=== PATIENT | male | born 1990 | race Caucasian/White ===

== ENCOUNTER 2017-11-10 14:23 | Emergency (ER) | payer OTHER, MEDICAID ==
[2017-11-10 18:30] LABS: ADD MAN DIFF? NO
[2017-11-10 18:32] LABS: WHITE BLOOD COUNT 10.2 10^3/ul (4.8-10.8)
[2017-11-10 18:32] LABS: BASOPHIL # 0.1 10^3/ul (0.0-0.1); BASOPHILS % 0.9 % (0.0-2.0); EOSINOPHILS % 0.4 % (0.0-7.0); HEMOGLOBIN 14.6 g/dl (14.0-18.0); LYMPHOCYTES # 2.8 10^3/ul (0.8-2.9); LYMPHOCYTES % 27.5 % (15.0-51.0); MEAN CORPUSCULAR HEMOGLOBIN 27.9 pg (29.0-33.0); MEAN CORPUSCULAR HGB CONC 34.8 g/dl (32.0-37.0); MEAN CORPUSCULAR VOLUME 80.3 fl (82.0-101.0); MEAN PLATELET VOLUME 9.5 fl (7.4-10.4); MONOCYTE # 0.5 10^3/ul (0.3-0.9); MONOCYTES % 5.2 % (0.0-11.0); NEUTROPHIL # 6.7 10^3/ul (1.6-7.5); NEUTROPHILS % 65.7 % (39.0-77.0); PLATELET COUNT 317 10^3/UL (140-415); RED BLOOD COUNT 5.23 10^6/ul (4.70-6.10); RED CELL DISTRIBUTION WIDTH 12.1 % (11.5-14.5)
[2017-11-10 18:48] LABS: ADD UMIC YES; UR ASCORBIC ACID NEGATIVE (NEGATIVE); UR BILIRUBIN (Dip) NEGATIVE (NEGATIVE); UR BLOOD (Dip) NEGATIVE (NEGATIVE); UR CLARITY CLEAR (CLEAR); UR COLOR AMBER (YELLOW); UR GLUCOSE (Dip) NEGATIVE (NEGATIVE); UR KETONES (Dip) NEGATIVE (NEGATIVE); UR LEUKOCYTE ESTERASE (Dip) NEGATIVE Leu/ul (NEGATIVE); UR MUCUS MODERATE /HPF (NONE SEEN); UR NITRITE (Dip) NEGATIVE (NEGATIVE); UR RBC 1 /HPF (0-5); UR SPECIFIC GRAVITY (Dip) 1.031 (1.003-1.030); UR TOTAL PROTEIN (Dip) 1+ mg/dl (NEGATIVE); UR UROBILINOGEN (Dip) 2+ mg/dL (NEGATIVE); UR WBC 2 /HPF (0-5)
[2017-11-10 18:52] LABS: ALANINE AMINOTRANSFERASE 36 IU/L (13-69); ALBUMIN 4.4 g/dl (3.3-4.9); ALBUMIN/GLOBULIN RATIO 1.18; ALKALINE PHOSPHATASE 119 IU/L (42-121); ANION GAP 18 (8-16); ASPARTATE AMINO TRANSFERASE 30 IU/L (15-46); BILIRUBIN,INDIRECT 0.4 mg/dl (0-1.1); BILIRUBIN,TOTAL 0.4 mg/dl (0.2-1.3); BLOOD UREA NITROGEN 9 mg/dl (7-20); CALCIUM 9.2 mg/dl (8.4-10.2); CARBON DIOXIDE 29 mmol/L (21-31); CHLORIDE 102 mmol/L (97-110); CREATININE 0.78 mg/dl (0.61-1.24); GLUCOSE 98 mg/dl (70-220); LIPASE 52 U/L (23-300); POTASSIUM 3.7 mmol/L (3.5-5.1); SODIUM 145 mmol/L (135-144); TOTAL PROTEIN 8.1 g/dl (6.1-8.1)
[2017-11-10 19:05] LABS: TROPONIN-I < 0.012 ng/ml (0.00-0.12)
[2017-11-10] MEDS: CIPROFLOXACIN 500 MG TAB PO (19:47)
[2017-11-10] MEDS: metroNIDAZOLE 500 MG TAB PO (19:48)
== END 2017-11-10 20:10 | disposition home or self-care (01) ==
LOC: FTE 14:23
DX: K57.32 Diverticulitis of large intestine without perforation or abscess without bleeding (principal); J45.909 Unspecified asthma, uncomplicated
CPT/HCPCS: 36415; 74176; 80053; 81001; 83690; 84484; 85025; 93005; 99285-25

== ENCOUNTER 2017-11-18 14:41 | Inpatient (IN) | payer OTHER ==
[2017-11-18 18:42] LABS: ADD MAN DIFF? NO
[2017-11-18 18:47] LABS: WHITE BLOOD COUNT 11.3 10^3/ul (4.8-10.8)
[2017-11-18 18:47] LABS: BASOPHIL # 0.1 10^3/ul (0.0-0.1); BASOPHILS % 0.5 % (0.0-2.0); EOSINOPHILS % 0.2 % (0.0-7.0); HEMATOCRIT 42.4 % (42.0-52.0); HEMOGLOBIN 14.6 g/dl (14.0-18.0); LYMPHOCYTES # 1.5 10^3/ul (0.8-2.9); MEAN CORPUSCULAR HEMOGLOBIN 27.6 pg (29.0-33.0); MEAN CORPUSCULAR HGB CONC 34.4 g/dl (32.0-37.0); MEAN CORPUSCULAR VOLUME 80.2 fl (82.0-101.0); MEAN PLATELET VOLUME 10.3 fl (7.4-10.4); MONOCYTE # 0.8 10^3/ul (0.3-0.9); MONOCYTES % 6.7 % (0.0-11.0); NEUTROPHIL # 8.9 10^3/ul (1.6-7.5); NEUTROPHILS % 79.3 % (39.0-77.0); PLATELET COUNT 344 10^3/UL (140-415); RED BLOOD COUNT 5.29 10^6/ul (4.70-6.10); RED CELL DISTRIBUTION WIDTH 12.3 % (11.5-14.5)
[2017-11-18 19:00] LABS: ADD UMIC YES; UR ASCORBIC ACID 20 mg/dL (NEGATIVE); UR BILIRUBIN (Dip) 1+ mg/dL (NEGATIVE); UR BLOOD (Dip) NEGATIVE (NEGATIVE); UR CLARITY CLEAR (CLEAR); UR COLOR AMBER (YELLOW); UR GLUCOSE (Dip) NEGATIVE (NEGATIVE); UR KETONES (Dip) 2+ mg/dL (NEGATIVE); UR LEUKOCYTE ESTERASE (Dip) 2+ Leu/ul (NEGATIVE); UR MUCUS MANY /HPF (NONE SEEN); UR NITRITE (Dip) NEGATIVE (NEGATIVE); UR RBC 0 /HPF (0-5); UR SPECIFIC GRAVITY (Dip) 1.029 (1.003-1.030); UR TOTAL PROTEIN (Dip) 1+ mg/dl (NEGATIVE); UR UROBILINOGEN (Dip) 2+ mg/dL (NEGATIVE); UR WBC 4 /HPF (0-5)
[2017-11-18 19:11] LABS: ALANINE AMINOTRANSFERASE 32 IU/L (13-69); ALBUMIN 4.6 g/dl (3.3-4.9); ALBUMIN/GLOBULIN RATIO 1.15; ALKALINE PHOSPHATASE 112 IU/L (42-121); ANION GAP 18 (8-16); ASPARTATE AMINO TRANSFERASE 26 IU/L (15-46); BILIRUBIN,INDIRECT 0.4 mg/dl (0-1.1); BILIRUBIN,TOTAL 0.4 mg/dl (0.2-1.3); BLOOD UREA NITROGEN 9 mg/dl (7-20); CARBON DIOXIDE 28 mmol/L (21-31); CHLORIDE 99 mmol/L (97-110); GLUCOSE 95 mg/dl (70-220); LIPASE 50 U/L (23-300); POTASSIUM 3.3 mmol/L (3.5-5.1); SODIUM 142 mmol/L (135-144); TOTAL PROTEIN 8.6 g/dl (6.1-8.1)
[2017-11-18] MEDS: SOD CHLORIDE 0.9% 100 ML (19:53)
[2017-11-18] MEDS: IOHEXOL 300MG/ML 150 ML BTL (19:53)
[2017-11-18] MEDS: SOD CHLORIDE 0.9% 500 ML IV (21:00)
[2017-11-18] MEDS: morphine 4 MG/ML VIAL IV (21:13)
[2017-11-18] MEDS: PIPER-TAZO 3.375 GM IV (PMX) 100 ML IVPB (21:13)
[2017-11-18] MEDS: SOD CHLORIDE 0.9% 1,000 ML IV (21:16)
[2017-11-18] MEDS: VANCOMYCIN 1 GM (PMX) 250 ML IVPB (21:56)
[2017-11-18] MEDS ORDERED: ACETAMINOPHEN 325 MG TAB PO (22:00)
[2017-11-18] MEDS ORDERED: ONDANSETRON 4 MG INJ IV ×2 (22:00→23:30)
[2017-11-18] MEDS ORDERED: NACL 0.9% 3 ML SYG IV (23:30)
[2017-11-19] MEDS: SOD CHLORIDE 0.9% 1,000 ML IV ×4 (01:39→23:24)
[2017-11-19] MEDS: PIPER-TAZO 3.375 GM IV (PMX) 100 ML IVPB ×5 (02:06→23:21)
[2017-11-19 05:10] LABS: ADD MAN DIFF? NO
[2017-11-19 05:17] LABS: BASOPHIL # 0.1 10^3/ul (0.0-0.1); MEAN CORPUSCULAR HGB CONC 34.7 g/dl (32.0-37.0)
[2017-11-19 05:23] LABS: WHITE BLOOD COUNT 9.1 10^3/ul (4.8-10.8)
[2017-11-19 05:23] LABS: BASOPHILS % 0.5 % (0.0-2.0); EOSINOPHILS % 0.4 % (0.0-7.0); HEMATOCRIT 36.3 % (42.0-52.0); HEMOGLOBIN 12.6 g/dl (14.0-18.0); LYMPHOCYTES # 1.6 10^3/ul (0.8-2.9); LYMPHOCYTES % 17.9 % (15.0-51.0); MEAN CORPUSCULAR HEMOGLOBIN 27.8 pg (29.0-33.0); MEAN PLATELET VOLUME 10.1 fl (7.4-10.4); MONOCYTE # 0.8 10^3/ul (0.3-0.9); MONOCYTES % 9.1 % (0.0-11.0); NEUTROPHIL # 6.5 10^3/ul (1.6-7.5); NEUTROPHILS % 71.6 % (39.0-77.0); PLATELET COUNT 278 10^3/UL (140-415); RED BLOOD COUNT 4.54 10^6/ul (4.70-6.10); RED CELL DISTRIBUTION WIDTH 11.9 % (11.5-14.5)
[2017-11-19] MEDS: morphine 2 MG INJ IV ×2 (05:26→10:31)
[2017-11-19 05:31] LABS: HEMOGLOBIN A1C 5.5 % (0-5.9)
[2017-11-19 05:52] LABS: ALANINE AMINOTRANSFERASE 31 IU/L (13-69); ALBUMIN 3.6 g/dl (3.3-4.9); ALBUMIN/GLOBULIN RATIO 1.09; ALKALINE PHOSPHATASE 84 IU/L (42-121); ANION GAP 20 (8-16); ASPARTATE AMINO TRANSFERASE 18 IU/L (15-46); BILIRUBIN,INDIRECT 0.5 mg/dl (0-1.1); BILIRUBIN,TOTAL 0.5 mg/dl (0.2-1.3); BLOOD UREA NITROGEN 8 mg/dl (7-20); CALCIUM 8.4 mg/dl (8.4-10.2); CARBON DIOXIDE 25 mmol/L (21-31); CHLORIDE 103 mmol/L (97-110); CHOL/HDL RATIO 4.8 RATIO; CHOLESTEROL 92 mg/dl (100-200); CREATININE 0.75 mg/dl (0.61-1.24); GLUCOSE 87 mg/dl (70-220); HDL CHOLESTEROL 19 mg/dl (30-63); LDL CHOLESTEROL,CALCULATED 59 mg/dl; MAGNESIUM 1.8 mg/dl (1.7-2.5); POTASSIUM 3.6 mmol/L (3.5-5.1); SODIUM 144 mmol/L (135-144); TOTAL PROTEIN 6.9 g/dl (6.1-8.1); TRIGLYCERIDES 70 mg/dl (0-149)
[2017-11-19] MEDS: LIDOCAINE 1% (MPF) 5 ML VIAL SC (08:00)
[2017-11-19] MEDS: SOD CHLORIDE 0.9% 100 ML (16:20)
[2017-11-19] MEDS: ACETAMINOPHEN 325 MG TAB PO ×2 (17:14→22:49)
[2017-11-20] MEDS: PIPER-TAZO 3.375 GM IV (PMX) 100 ML IVPB ×3 (05:49→17:20)
[2017-11-20] MEDS: ACETAMINOPHEN 325 MG TAB PO ×3 (05:49→19:03)
[2017-11-20] MEDS: morphine 2 MG INJ IV ×5 (08:21→21:14)
[2017-11-20] MEDS: SOD CHLORIDE 0.9% 1,000 ML IV ×2 (11:35→22:25)
[2017-11-21] MEDS: PIPER-TAZO 3.375 GM IV (PMX) 100 ML IVPB ×3 (01:00→11:10)
[2017-11-21] MEDS: ACETAMINOPHEN 325 MG TAB PO (01:01)
[2017-11-21] MEDS: SOD CHLORIDE 0.9% 1,000 ML IV ×4 (01:09→21:09)
[2017-11-21] MEDS: morphine 2 MG INJ IV (04:57)
[2017-11-21 05:55] LABS: ALBUMIN 3.7 g/dl (3.3-4.9); ANION GAP 19 (8-16); BLOOD UREA NITROGEN 3 mg/dl (7-20); CALCIUM 8.4 mg/dl (8.4-10.2); CARBON DIOXIDE 26 mmol/L (21-31); CHLORIDE 101 mmol/L (97-110); CREATININE 0.62 mg/dl (0.61-1.24); GLUCOSE 80 mg/dl (70-220); MAGNESIUM 1.8 mg/dl (1.7-2.5); PHOSPHORUS 3.7 mg/dl (2.5-4.9); POTASSIUM 3.7 mmol/L (3.5-5.1); SODIUM 142 mmol/L (135-144)
[2017-11-21] MEDS: POLYETHYLENE GLYCOL 17 GM PACKET PO (11:00)
[2017-11-21] MEDS: traMADol 50 MG TAB PO (13:15)
[2017-11-21] MEDS: ERTAPENEM SODIUM 1 GM in SOD CHLORIDE 0.9% 100 ML IVPB (14:15)
[2017-11-22] MEDS: traMADol 50 MG TAB PO ×2 (00:25→09:59)
[2017-11-22] MEDS: ACETAMINOPHEN 325 MG TAB PO ×2 (03:40→15:45)
[2017-11-22] MEDS: SOD CHLORIDE 0.9% 1,000 ML IV (06:15)
[2017-11-22] MEDS: POLYETHYLENE GLYCOL 17 GM PACKET PO (09:58)
[2017-11-22] MEDS: ERTAPENEM SODIUM 1 GM in SOD CHLORIDE 0.9% 100 ML IVPB (14:35)
== END 2017-11-22 16:10 | disposition home health service (06) | DRG 392 ==
LOC: FTE 14:41 → MS1 21:58
DX: K57.20 Diverticulitis of large intestine with perforation and abscess without bleeding (principal); R65.10 Systemic inflammatory response syndrome (SIRS) of non-infectious origin without acute organ dysfunction; Z68.41 Body mass index [BMI] 40.0-44.9, adult; E66.01 Morbid (severe) obesity due to excess calories
CPT/HCPCS: 36415; 36569; 71045; 74177; 76937; 80053; 80061; 80069; 81001; 83036; 83690; 83735; 84443; 85025; 96365; 96366; 96368; 96375; 99285-25

== ENCOUNTER 2017-12-06 17:54 | Inpatient (IN) | payer OTHER ==
[2017-12-06] MEDS: CEFEPIME 2GM/50 ML (PMX) 50 ML IVPB (21:12)
[2017-12-06] MEDS: SODIUM CHLORIDE 0.9% 1L BAG IV* (21:12)
[2017-12-06 21:21] LABS: ADD MAN DIFF? NO
[2017-12-06 21:23] LABS: BASOPHILS % 0.5 % (0.0-2.0); EOSINOPHILS % 0.2 % (0.0-7.0); HEMATOCRIT 36.2 % (42.0-52.0); HEMOGLOBIN 12.5 g/dl (14.0-18.0); LYMPHOCYTES % 12.6 % (15.0-51.0); MEAN CORPUSCULAR HEMOGLOBIN 27.1 pg (29.0-33.0); MEAN CORPUSCULAR HGB CONC 34.5 g/dl (32.0-37.0); MEAN CORPUSCULAR VOLUME 78.5 fl (82.0-101.0); MEAN PLATELET VOLUME 9.9 fl (7.4-10.4); MONOCYTE # 0.7 10^3/ul (0.3-0.9); MONOCYTES % 9.2 % (0.0-11.0); NEUTROPHIL # 6.2 10^3/ul (1.6-7.5); NEUTROPHILS % 77.1 % (39.0-77.0); PLATELET COUNT 299 10^3/UL (140-415); RED BLOOD COUNT 4.61 10^6/ul (4.70-6.10)
[2017-12-06 21:52] LABS: ALANINE AMINOTRANSFERASE 32 IU/L (13-69); ALBUMIN 4.1 g/dl (3.3-4.9); ALKALINE PHOSPHATASE 94 IU/L (42-121); ANION GAP 14 (8-16); ASPARTATE AMINO TRANSFERASE 34 IU/L (15-46); BILIRUBIN,INDIRECT 0.4 mg/dl (0-1.1); BILIRUBIN,TOTAL 0.4 mg/dl (0.2-1.3); BLOOD UREA NITROGEN 10 mg/dl (7-20); CALCIUM 8.9 mg/dl (8.4-10.2); CARBON DIOXIDE 29 mmol/L (21-31); CHLORIDE 99 mmol/L (97-110); CREATININE 0.65 mg/dl (0.61-1.24); GLUCOSE 116 mg/dl (70-220); POTASSIUM 3.4 mmol/L (3.5-5.1); SODIUM 139 mmol/L (135-144); TOTAL PROTEIN 7.8 g/dl (6.1-8.1)
[2017-12-06 21:55] LABS: INR 1.21; PARTIAL THROMBOPLASTIN TIME 39.1 Sec (25.0-35.0); PROTIME 15.5 Sec (11.9-14.9); PT RATIO 1.2
[2017-12-06 22:04] LABS: TROPONIN-I < 0.012 ng/ml (0.00-0.12)
[2017-12-06] MEDS: ONDANSETRON 4 MG INJ IV (22:10)
[2017-12-06] MEDS: morphine 4 MG/ML VIAL IV (22:11)
[2017-12-06 23:35] LABS: LACTIC ACID 0.7 mmol/L (0.5-2.0)
[2017-12-07] MEDS: PIPER-TAZO 3.375 GM IV (PMX) 100 ML IVPB (01:00)
[2017-12-07] MEDS: SOD CHLORIDE 0.9% 1,000 ML IV ×4 (01:00→17:15)
[2017-12-07] MEDS ORDERED: NACL 0.9% 3 ML SYG IV (01:30)
[2017-12-07] MEDS: ONDANSETRON 4 MG INJ IV (02:35)
[2017-12-07] MEDS: HYDROmorphONE 0.5 MG/0.5 ML SYG IV (02:35)
[2017-12-07] MEDS: ACETAMINOPHEN 325 MG TAB PO ×4 (03:22→17:46)
[2017-12-07 04:13] LABS: ADD MAN DIFF? NO
[2017-12-07 04:14] LABS: BASOPHILS % 0.4 % (0.0-2.0); EOSINOPHILS # 0.1 10^3/ul (0.0-0.5); EOSINOPHILS % 0.9 % (0.0-7.0); HEMATOCRIT 32.8 % (42.0-52.0); HEMOGLOBIN 11.4 g/dl (14.0-18.0); MEAN CORPUSCULAR HEMOGLOBIN 27.7 pg (29.0-33.0); MEAN CORPUSCULAR HGB CONC 34.8 g/dl (32.0-37.0); MEAN CORPUSCULAR VOLUME 79.6 fl (82.0-101.0); MEAN PLATELET VOLUME 9.9 fl (7.4-10.4); MONOCYTE # 0.8 10^3/ul (0.3-0.9); NEUTROPHIL # 4.1 10^3/ul (1.6-7.5); NEUTROPHILS % 58.4 % (39.0-77.0); PLATELET COUNT 271 10^3/UL (140-415); RED BLOOD COUNT 4.12 10^6/ul (4.70-6.10); RED CELL DISTRIBUTION WIDTH 11.9 % (11.5-14.5)
[2017-12-07 04:30] LABS: INR 1.28; PROTIME 16.2 Sec (11.9-14.9); PT RATIO 1.3
[2017-12-07 04:31] LABS: PARTIAL THROMBOPLASTIN TIME 43.5 Sec (25.0-35.0)
[2017-12-07 04:34] LABS: ALANINE AMINOTRANSFERASE 29 IU/L (13-69); ALBUMIN 3.3 g/dl (3.3-4.9); ALBUMIN/GLOBULIN RATIO 0.91; ALKALINE PHOSPHATASE 78 IU/L (42-121); ANION GAP 17 (8-16); ASPARTATE AMINO TRANSFERASE 26 IU/L (15-46); BILIRUBIN,INDIRECT 0.6 mg/dl (0-1.1); BILIRUBIN,TOTAL 0.6 mg/dl (0.2-1.3); BLOOD UREA NITROGEN 7 mg/dl (7-20); CALCIUM 8.2 mg/dl (8.4-10.2); CARBON DIOXIDE 26 mmol/L (21-31); CHLORIDE 103 mmol/L (97-110); CREATININE 0.63 mg/dl (0.61-1.24); GLUCOSE 91 mg/dl (70-220); MAGNESIUM 1.8 mg/dl (1.7-2.5); POTASSIUM 3.6 mmol/L (3.5-5.1); SODIUM 142 mmol/L (135-144); TOTAL PROTEIN 6.9 g/dl (6.1-8.1)
[2017-12-07 04:35] LABS: LACTIC ACID 0.7 mmol/L (0.5-2.0)
[2017-12-07] MEDS ORDERED: PIPER-TAZO 3.375 GM IV (PMX) 100 ML IVPB (06:00)
[2017-12-07] MEDS: MEROPENEM 1 GM/50ML(PMX) 50 ML IVPB ×3 (06:12→21:30)
[2017-12-07] MEDS: IOHEXOL 14.3 MG(I)/ML (ADULT) BTL PO (17:43)
[2017-12-07] MEDS: SOD CHLORIDE 0.9% 100 ML (20:30)
[2017-12-07] MEDS: IOHEXOL 300MG/ML 150 ML BTL (20:30)
[2017-12-08] MEDS: ACETAMINOPHEN 325 MG TAB PO ×2 (00:15→16:27)
[2017-12-08] MEDS: HYDROmorphONE 0.5 MG/0.5 ML SYG IV ×5 (04:27→22:56)
[2017-12-08 05:23] LABS: ALANINE AMINOTRANSFERASE 42 IU/L (13-69); ALBUMIN 3.7 g/dl (3.3-4.9); ALBUMIN/GLOBULIN RATIO 0.94; ALKALINE PHOSPHATASE 90 IU/L (42-121); ANION GAP 18 (8-16); ASPARTATE AMINO TRANSFERASE 40 IU/L (15-46); BILIRUBIN,INDIRECT 0.4 mg/dl (0-1.1); BILIRUBIN,TOTAL 0.4 mg/dl (0.2-1.3); BLOOD UREA NITROGEN 4 mg/dl (7-20); CALCIUM 8.5 mg/dl (8.4-10.2); CARBON DIOXIDE 26 mmol/L (21-31); CHLORIDE 103 mmol/L (97-110); CREATININE 0.58 mg/dl (0.61-1.24); GLUCOSE 78 mg/dl (70-220); POTASSIUM 3.6 mmol/L (3.5-5.1); SODIUM 143 mmol/L (135-144); TOTAL PROTEIN 7.6 g/dl (6.1-8.1)
[2017-12-08] MEDS: MEROPENEM 1 GM/50ML(PMX) 50 ML IVPB ×3 (05:36→21:28)
[2017-12-08] MEDS: SOD CHLORIDE 0.9% 1,000 ML IV ×2 (09:39→17:17)
[2017-12-08] MEDS ORDERED: VANCOMYCIN IV PER PHARMACY XX (16:00)
[2017-12-08] MEDS ORDERED: FLUCONAZOLE 100 MG/NS (PMX) 50 ML IVPB (17:00)
[2017-12-08] MEDS: FLUCONAZOLE 200 MG/NS (PMX) 100 ML IVPB (18:22)
[2017-12-08] MEDS: VANCOMYCIN 2 GM in SOD CHLORIDE 0.9% 500 ML IVPB (18:45)
[2017-12-09] MEDS: HYDROmorphONE 0.5 MG/0.5 ML SYG IV ×5 (02:56→21:34)
[2017-12-09] MEDS: VANCOMYCIN 1.25 GM in SOD CHLORIDE 0.9% 250 ML IVPB ×3 (02:56→18:34)
[2017-12-09] MEDS: SOD CHLORIDE 0.9% 1,000 ML IV ×3 (03:01→23:17)
[2017-12-09] MEDS: MEROPENEM 1 GM/50ML(PMX) 50 ML IVPB ×3 (06:46→22:30)
[2017-12-09 06:48] LABS: ALANINE AMINOTRANSFERASE 36 IU/L (13-69); ALBUMIN 3.9 g/dl (3.3-4.9); ALBUMIN/GLOBULIN RATIO 1.08; ALKALINE PHOSPHATASE 87 IU/L (42-121); ANION GAP 19 (8-16); ASPARTATE AMINO TRANSFERASE 25 IU/L (15-46); BILIRUBIN,INDIRECT 0.4 mg/dl (0-1.1); BILIRUBIN,TOTAL 0.4 mg/dl (0.2-1.3); BLOOD UREA NITROGEN 5 mg/dl (7-20); CALCIUM 8.8 mg/dl (8.4-10.2); CARBON DIOXIDE 25 mmol/L (21-31); CHLORIDE 100 mmol/L (97-110); CREATININE 0.54 mg/dl (0.61-1.24); GLUCOSE 68 mg/dl (70-220); MAGNESIUM 1.8 mg/dl (1.7-2.5); POTASSIUM 3.7 mmol/L (3.5-5.1); SODIUM 140 mmol/L (135-144); TOTAL PROTEIN 7.5 g/dl (6.1-8.1)
[2017-12-09] MEDS: ACETAMINOPHEN 325 MG TAB PO (09:17)
[2017-12-09] MEDS: LIDOCAINE 1% (MDV) 10 ML INJ (11:26)
[2017-12-09] MEDS: FENTAnyl 50 MCG/ML VIAL (11:45)
[2017-12-09] MEDS: MIDAZOLAM 1 MG/ML 2 ML INJ (11:50)
[2017-12-09] MEDS: SOD CHLORIDE 0.9% 250 ML (12:00)
[2017-12-09] MEDS: FLUCONAZOLE 200 MG/NS (PMX) 100 ML IVPB (16:18)
[2017-12-09] MEDS ORDERED: HYDROmorphONE 0.5 MG/0.5 ML SYG IV (18:00)
[2017-12-09 18:18] LABS: VANCOMYCIN,TROUGH 10.1 ug/ml (10.0-20.0)
[2017-12-09] MEDS: FAMOTIDINE 20 MG INJ IV (19:46)
[2017-12-10] MEDS: VANCOMYCIN 1.25 GM in SOD CHLORIDE 0.9% 250 ML IVPB ×3 (01:37→18:42)
[2017-12-10] MEDS: HYDROmorphONE 0.5 MG/0.5 ML SYG IV ×6 (01:38→22:51)
[2017-12-10 05:44] LABS: ADD MAN DIFF? NO
[2017-12-10 05:45] LABS: WHITE BLOOD COUNT 7.5 10^3/ul (4.8-10.8)
[2017-12-10 05:45] LABS: BASOPHILS % 0.4 % (0.0-2.0); EOSINOPHILS # 0.1 10^3/ul (0.0-0.5); EOSINOPHILS % 0.7 % (0.0-7.0); HEMATOCRIT 36.3 % (42.0-52.0); HEMOGLOBIN 12.5 g/dl (14.0-18.0); LYMPHOCYTES # 1.2 10^3/ul (0.8-2.9); LYMPHOCYTES % 15.4 % (15.0-51.0); MEAN CORPUSCULAR HEMOGLOBIN 27.4 pg (29.0-33.0); MEAN CORPUSCULAR HGB CONC 34.4 g/dl (32.0-37.0); MEAN CORPUSCULAR VOLUME 79.4 fl (82.0-101.0); MEAN PLATELET VOLUME 10.5 fl (7.4-10.4); MONOCYTE # 0.7 10^3/ul (0.3-0.9); MONOCYTES % 9.4 % (0.0-11.0); NEUTROPHIL # 5.6 10^3/ul (1.6-7.5); NEUTROPHILS % 73.8 % (39.0-77.0); PLATELET COUNT 285 10^3/UL (140-415); RED BLOOD COUNT 4.57 10^6/ul (4.70-6.10); RED CELL DISTRIBUTION WIDTH 12.3 % (11.5-14.5)
[2017-12-10 06:02] LABS: PHOSPHORUS 3.4 mg/dl (2.5-4.9)
[2017-12-10 06:13] LABS: ALANINE AMINOTRANSFERASE 33 IU/L (13-69); ALBUMIN 4.1 g/dl (3.3-4.9); ALBUMIN/GLOBULIN RATIO 1.07; ALKALINE PHOSPHATASE 91 IU/L (42-121); ANION GAP 21 (8-16); ASPARTATE AMINO TRANSFERASE 24 IU/L (15-46); BILIRUBIN,INDIRECT 0.4 mg/dl (0-1.1); BILIRUBIN,TOTAL 0.4 mg/dl (0.2-1.3); BLOOD UREA NITROGEN 5 mg/dl (7-20); CALCIUM 8.8 mg/dl (8.4-10.2); CARBON DIOXIDE 23 mmol/L (21-31); CHLORIDE 100 mmol/L (97-110); CREATININE 0.56 mg/dl (0.61-1.24); GLUCOSE 79 mg/dl (70-220); MAGNESIUM 1.8 mg/dl (1.7-2.5); POTASSIUM 3.8 mmol/L (3.5-5.1); SODIUM 140 mmol/L (135-144); TOTAL PROTEIN 7.9 g/dl (6.1-8.1)
[2017-12-10] MEDS: MEROPENEM 1 GM/50ML(PMX) 50 ML IVPB ×3 (06:25→22:51)
[2017-12-10] MEDS: ENOXAPARIN 40 MG/0.4 ML SYG SC (08:22)
[2017-12-10] MEDS: FAMOTIDINE 20 MG INJ IV (08:23)
[2017-12-10] MEDS: SOD CHLORIDE 0.9% 1,000 ML IV (08:23)
[2017-12-10] MEDS: ONDANSETRON 4 MG INJ IV (08:23)
[2017-12-10] MEDS: DEXTROSE 5%-0.45% NACL 1,000 ML IV (12:23)
[2017-12-10] MEDS: FLUCONAZOLE 200 MG/NS (PMX) 100 ML IVPB (17:18)
[2017-12-11] MEDS: VANCOMYCIN 1.25 GM in SOD CHLORIDE 0.9% 250 ML IVPB ×3 (02:00→17:53)
[2017-12-11] MEDS: HYDROmorphONE 0.5 MG/0.5 ML SYG IV ×5 (05:02→20:26)
[2017-12-11] MEDS: DEXTROSE 5%-0.45% NACL 1,000 ML IV ×2 (05:02→09:48)
[2017-12-11] MEDS: MEROPENEM 1 GM/50ML(PMX) 50 ML IVPB ×3 (06:23→22:05)
[2017-12-11] MEDS: FAMOTIDINE 20 MG INJ IV (09:33)
[2017-12-11] MEDS: ENOXAPARIN 40 MG/0.4 ML SYG SC (09:34)
[2017-12-11] MEDS: ONDANSETRON 4 MG INJ IV ×2 (11:56→22:09)
[2017-12-11 13:17] LABS: HEMATOCRIT 36.9 % (42.0-52.0); HEMOGLOBIN 12.5 g/dl (14.0-18.0)
[2017-12-12] MEDS: HYDROmorphONE 0.5 MG/0.5 ML SYG IV ×3 (00:29→19:11)
[2017-12-12] MEDS: VANCOMYCIN 1.25 GM in SOD CHLORIDE 0.9% 250 ML IVPB (02:23)
[2017-12-12] MEDS: DEXTROSE 5%-0.45% NACL 1,000 ML IV ×2 (04:38→19:16)
[2017-12-12 05:06] LABS: ADD MAN DIFF? NO
[2017-12-12 05:15] LABS: BASOPHILS % 0.4 % (0.0-2.0); EOSINOPHILS # 0.1 10^3/ul (0.0-0.5); EOSINOPHILS % 1.1 % (0.0-7.0); HEMATOCRIT 35.5 % (42.0-52.0); LYMPHOCYTES # 1.3 10^3/ul (0.8-2.9); LYMPHOCYTES % 19.3 % (15.0-51.0); MEAN CORPUSCULAR HEMOGLOBIN 26.8 pg (29.0-33.0); MEAN CORPUSCULAR HGB CONC 33.8 g/dl (32.0-37.0); MEAN CORPUSCULAR VOLUME 79.4 fl (82.0-101.0); MEAN PLATELET VOLUME 10.7 fl (7.4-10.4); MONOCYTE # 0.7 10^3/ul (0.3-0.9); MONOCYTES % 10.6 % (0.0-11.0); NEUTROPHIL # 4.7 10^3/ul (1.6-7.5); NEUTROPHILS % 68.2 % (39.0-77.0); PLATELET COUNT 245 10^3/UL (140-415); RED BLOOD COUNT 4.47 10^6/ul (4.70-6.10); RED CELL DISTRIBUTION WIDTH 11.9 % (11.5-14.5)
[2017-12-12 05:44] LABS: ALANINE AMINOTRANSFERASE 22 IU/L (13-69); ALBUMIN 3.7 g/dl (3.3-4.9); ALBUMIN/GLOBULIN RATIO 1.05; ALKALINE PHOSPHATASE 81 IU/L (42-121); ANION GAP 16 (8-16); ASPARTATE AMINO TRANSFERASE 18 IU/L (15-46); BILIRUBIN,INDIRECT 0.2 mg/dl (0-1.1); BILIRUBIN,TOTAL 0.2 mg/dl (0.2-1.3); BLOOD UREA NITROGEN 6 mg/dl (7-20); CALCIUM 8.6 mg/dl (8.4-10.2); CARBON DIOXIDE 26 mmol/L (21-31); CHLORIDE 100 mmol/L (97-110); CREATININE 0.66 mg/dl (0.61-1.24); GLUCOSE 94 mg/dl (70-220); MAGNESIUM 1.8 mg/dl (1.7-2.5); POTASSIUM 3.4 mmol/L (3.5-5.1); SODIUM 139 mmol/L (135-144); TOTAL PROTEIN 7.2 g/dl (6.1-8.1)
[2017-12-12] MEDS: MEROPENEM 1 GM/50ML(PMX) 50 ML IVPB (06:08)
[2017-12-12] MEDS: ALTEPLASE (CATHFLO) 2 MG INJ CATHETER (06:45)
[2017-12-12] MEDS: ONDANSETRON 4 MG INJ IV ×4 (06:51→19:15)
[2017-12-12] MEDS: FAMOTIDINE 20 MG INJ IV (08:28)
[2017-12-12] MEDS: ENOXAPARIN 40 MG/0.4 ML SYG SC (08:32)
[2017-12-12] MEDS: KETOROLAC 30 MG INJ IV ×3 (10:14→21:54)
[2017-12-12 11:11] LABS: VANCOMYCIN,TROUGH 13.4 ug/ml (10.0-20.0)
[2017-12-12] MEDS ORDERED: HYDROCODONE/APAP (5/325) TAB PO ×2 (11:30)
[2017-12-12] MEDS: CIPROFLOXACIN 400MG/D5W 200 ML IVPB ×2 (13:37→23:00)
[2017-12-12] MEDS: PIPER-TAZO 3.375 GM IV (PMX) 100 ML IVPB ×2 (14:49→21:51)
[2017-12-13] MEDS: ONDANSETRON 4 MG INJ IV ×3 (01:51→10:05)
[2017-12-13] MEDS: PIPER-TAZO 3.375 GM IV (PMX) 100 ML IVPB ×4 (04:09→19:07)
[2017-12-13] MEDS: KETOROLAC 30 MG INJ IV ×2 (04:11→10:05)
[2017-12-13 05:51] LABS: ADD MAN DIFF? NO
[2017-12-13 05:53] LABS: BASOPHILS % 0.3 % (0.0-2.0); EOSINOPHILS % 0.3 % (0.0-7.0); HEMATOCRIT 30.8 % (42.0-52.0); HEMOGLOBIN 10.6 g/dl (14.0-18.0); LYMPHOCYTES # 0.8 10^3/ul (0.8-2.9); LYMPHOCYTES % 8.3 % (15.0-51.0); MEAN CORPUSCULAR HGB CONC 34.4 g/dl (32.0-37.0); MEAN CORPUSCULAR VOLUME 78.4 fl (82.0-101.0); MEAN PLATELET VOLUME 10.3 fl (7.4-10.4); MONOCYTE # 0.8 10^3/ul (0.3-0.9); MONOCYTES % 7.9 % (0.0-11.0); NEUTROPHIL # 8.2 10^3/ul (1.6-7.5); NEUTROPHILS % 82.8 % (39.0-77.0); PLATELET COUNT 237 10^3/UL (140-415); RED BLOOD COUNT 3.93 10^6/ul (4.70-6.10)
[2017-12-13 05:53] LABS: WHITE BLOOD COUNT 9.9 10^3/ul (4.8-10.8)
[2017-12-13 06:27] LABS: ALANINE AMINOTRANSFERASE 20 IU/L (13-69); ALBUMIN/GLOBULIN RATIO 0.78; ALKALINE PHOSPHATASE 74 IU/L (42-121); ANION GAP 20 (8-16); ASPARTATE AMINO TRANSFERASE 18 IU/L (15-46); BILIRUBIN,INDIRECT 0.4 mg/dl (0-1.1); BILIRUBIN,TOTAL 0.4 mg/dl (0.2-1.3); BLOOD UREA NITROGEN 6 mg/dl (7-20); CALCIUM 7.8 mg/dl (8.4-10.2); CARBON DIOXIDE 26 mmol/L (21-31); CHLORIDE 103 mmol/L (97-110); CREATININE 0.89 mg/dl (0.61-1.24); GLUCOSE 109 mg/dl (70-220); MAGNESIUM 1.6 mg/dl (1.7-2.5); PHOSPHORUS 2.3 mg/dl (2.5-4.9); SODIUM 146 mmol/L (135-144); TOTAL PROTEIN 6.8 g/dl (6.1-8.1)
[2017-12-13 06:32] LABS: POTASSIUM 2.8 mmol/L (3.5-5.1)
[2017-12-13] MEDS: POTASSIUM CHLORIDE (SR) 20 MEQ TAB PO ×2 (10:04→17:31)
[2017-12-13] MEDS: FAMOTIDINE 20 MG INJ IV (10:06)
[2017-12-13] MEDS: ENOXAPARIN 40 MG/0.4 ML SYG SC (10:12)
[2017-12-13] MEDS: CIPROFLOXACIN 400MG/D5W 200 ML IVPB ×2 (10:12→23:49)
[2017-12-13] MEDS ORDERED: MAGNESIUM SULFATE (GM) 50% 2 ML INJ IVPB (13:30)
[2017-12-13] MEDS: DEXTROSE 5%-0.45% NACL 1,000 ML IV (16:31)
[2017-12-13] MEDS: POTASSIUM CHLORIDE 20 MEQ POWDER FOR ORAL SOLN PO (17:32)
[2017-12-13] MEDS: METOCLOPRAMIDE 10 MG INJ IV (19:03)
[2017-12-13] MEDS: MAG SULFATE 2GM IN 50 ML IVPB (19:05)
[2017-12-13] MEDS: POTASSIUM CHLORIDE 100 ML IVPB (20:15)
[2017-12-14] MEDS ORDERED: METOCLOPRAMIDE 10 MG INJ IV
[2017-12-14] MEDS: PIPER-TAZO 3.375 GM IV (PMX) 100 ML IVPB ×4 (00:08→17:06)
[2017-12-14] MEDS: ZOLPIDEM 5 MG TAB PO ×2 (00:08→22:11)
[2017-12-14] MEDS: METOCLOPRAMIDE 10 MG INJ IV (00:09)
[2017-12-14 05:47] LABS: ADD MAN DIFF? NO
[2017-12-14 05:53] LABS: WHITE BLOOD COUNT 9.7 10^3/ul (4.8-10.8)
[2017-12-14 05:53] LABS: BASOPHIL # 0.1 10^3/ul (0.0-0.1); BASOPHILS % 0.5 % (0.0-2.0); EOSINOPHILS # 0.1 10^3/ul (0.0-0.5); EOSINOPHILS % 0.9 % (0.0-7.0); HEMATOCRIT 33.1 % (42.0-52.0); HEMOGLOBIN 11.3 g/dl (14.0-18.0); LYMPHOCYTES # 1.6 10^3/ul (0.8-2.9); LYMPHOCYTES % 16.2 % (15.0-51.0); MEAN CORPUSCULAR HEMOGLOBIN 26.9 pg (29.0-33.0); MEAN CORPUSCULAR HGB CONC 34.1 g/dl (32.0-37.0); MEAN CORPUSCULAR VOLUME 78.8 fl (82.0-101.0); MEAN PLATELET VOLUME 10.5 fl (7.4-10.4); MONOCYTE # 0.9 10^3/ul (0.3-0.9); NEUTROPHIL # 7.1 10^3/ul (1.6-7.5); NEUTROPHILS % 73.1 % (39.0-77.0); PLATELET COUNT 277 10^3/UL (140-415)
[2017-12-14 06:12] LABS: INR 1.62; PROTIME 19.6 Sec (11.9-14.9); PT RATIO 1.5
[2017-12-14 06:14] LABS: ALANINE AMINOTRANSFERASE 27 IU/L (13-69); ALBUMIN/GLOBULIN RATIO 0.85; ALKALINE PHOSPHATASE 78 IU/L (42-121); ANION GAP 14 (8-16); ASPARTATE AMINO TRANSFERASE 23 IU/L (15-46); BILIRUBIN,INDIRECT 0.4 mg/dl (0-1.1); BILIRUBIN,TOTAL 0.4 mg/dl (0.2-1.3); BLOOD UREA NITROGEN 7 mg/dl (7-20); CALCIUM 8.3 mg/dl (8.4-10.2); CARBON DIOXIDE 28 mmol/L (21-31); CHLORIDE 100 mmol/L (97-110); CREATININE 0.98 mg/dl (0.61-1.24); GLUCOSE 109 mg/dl (70-220); MAGNESIUM 2.1 mg/dl (1.7-2.5); PHOSPHORUS 3.5 mg/dl (2.5-4.9); SODIUM 139 mmol/L (135-144); TOTAL PROTEIN 6.5 g/dl (6.1-8.1)
[2017-12-14 06:18] LABS: POTASSIUM 2.9 mmol/L (3.5-5.1)
[2017-12-14 06:23] LABS: LIPASE 59 U/L (23-300)
[2017-12-14 06:26] LABS: TROPONIN-I < 0.012 ng/ml (0.00-0.12)
[2017-12-14] MEDS: KETOROLAC 30 MG INJ IV ×2 (07:53→19:12)
[2017-12-14] MEDS: POTASSIUM CHLORIDE 20 MEQ POWDER FOR ORAL SOLN PO (09:00)
[2017-12-14] MEDS: ENOXAPARIN 40 MG/0.4 ML SYG SC (09:00)
[2017-12-14] MEDS: POTASSIUM CHLORIDE 100 ML IVPB ×2 (10:20→12:06)
[2017-12-14] MEDS: CIPROFLOXACIN 400MG/D5W 200 ML IVPB ×2 (10:24→20:29)
[2017-12-14] MEDS: FAMOTIDINE 20 MG INJ IV (10:24)
[2017-12-14] MEDS: ACETAMINOPHEN 325 MG TAB PO (12:05)
[2017-12-14] MEDS: DEXTROSE 5%-0.45% NACL 1,000 ML IV (13:38)
[2017-12-15] MEDS: PIPER-TAZO 3.375 GM IV (PMX) 100 ML IVPB ×3 (00:14→12:16)
[2017-12-15] MEDS: DEXTROSE 5%-0.45% NACL 1,000 ML IV ×2 (06:11→13:06)
[2017-12-15] MEDS: POTASSIUM CHLORIDE 20 MEQ POWDER FOR ORAL SOLN PO ×2 (09:00→09:03)
[2017-12-15] MEDS: FAMOTIDINE 20 MG INJ IV (09:03)
[2017-12-15] MEDS: CIPROFLOXACIN 400MG/D5W 200 ML IVPB ×2 (09:08→20:10)
[2017-12-15] MEDS: ENOXAPARIN 40 MG/0.4 ML SYG SC (09:14)
[2017-12-15] MEDS: METOCLOPRAMIDE 10 MG INJ IV ×2 (10:24→21:45)
[2017-12-15] MEDS: POTASSIUM CHLORIDE 50 ML IVPB ×2 (14:26→16:38)
[2017-12-15] MEDS: AMPICILLIN/SULB 3 GM/NS (PMX) 100 ML IVPB (18:34)
[2017-12-15] MEDS: ACETAMINOPHEN 1000 MG/100 ML IVPB IV (21:45)
[2017-12-15] MEDS ORDERED: metroNIDAZOLE 500 MG/NS (PMX) 100 ML IVPB (22:00)
[2017-12-16] MEDS: AMPICILLIN/SULB 3 GM/NS (PMX) 100 ML IVPB ×4 (00:19→17:33)
[2017-12-16 05:28] LABS: ADD MAN DIFF? NO
[2017-12-16 05:33] LABS: BASOPHIL # 0.1 10^3/ul (0.0-0.1); EOSINOPHILS # 0.3 10^3/ul (0.0-0.5); EOSINOPHILS % 4.5 % (0.0-7.0); HEMATOCRIT 34.3 % (42.0-52.0); HEMOGLOBIN 11.5 g/dl (14.0-18.0); LYMPHOCYTES # 1.7 10^3/ul (0.8-2.9); LYMPHOCYTES % 28.3 % (15.0-51.0); MEAN CORPUSCULAR HEMOGLOBIN 26.7 pg (29.0-33.0); MEAN CORPUSCULAR HGB CONC 33.5 g/dl (32.0-37.0); MEAN CORPUSCULAR VOLUME 79.6 fl (82.0-101.0); MEAN PLATELET VOLUME 10.4 fl (7.4-10.4); MONOCYTE # 0.7 10^3/ul (0.3-0.9); MONOCYTES % 11.1 % (0.0-11.0); NEUTROPHIL # 3.3 10^3/ul (1.6-7.5); NEUTROPHILS % 54.8 % (39.0-77.0); PLATELET COUNT 299 10^3/UL (140-415); RED BLOOD COUNT 4.31 10^6/ul (4.70-6.10); RED CELL DISTRIBUTION WIDTH 11.9 % (11.5-14.5)
[2017-12-16 05:55] LABS: ALANINE AMINOTRANSFERASE 39 IU/L (13-69); ALBUMIN 3.3 g/dl (3.3-4.9); ALKALINE PHOSPHATASE 77 IU/L (42-121); ANION GAP 17 (8-16); ASPARTATE AMINO TRANSFERASE 33 IU/L (15-46); BILIRUBIN,INDIRECT 0.4 mg/dl (0-1.1); BILIRUBIN,TOTAL 0.4 mg/dl (0.2-1.3); BLOOD UREA NITROGEN 5 mg/dl (7-20); CALCIUM 8.5 mg/dl (8.4-10.2); CARBON DIOXIDE 29 mmol/L (21-31); CHLORIDE 100 mmol/L (97-110); CREATININE 0.84 mg/dl (0.61-1.24); GLUCOSE 94 mg/dl (70-220); MAGNESIUM 1.8 mg/dl (1.7-2.5); POTASSIUM 3.3 mmol/L (3.5-5.1); SODIUM 143 mmol/L (135-144); TOTAL PROTEIN 6.6 g/dl (6.1-8.1)
[2017-12-16 05:56] LABS: LIPASE 89 U/L (23-300)
[2017-12-16 06:05] LABS: TROPONIN-I < 0.012 ng/ml (0.00-0.12)
[2017-12-16] MEDS: ENOXAPARIN 40 MG/0.4 ML SYG SC (09:14)
[2017-12-16] MEDS: CIPROFLOXACIN 400MG/D5W 200 ML IVPB ×2 (09:50→20:48)
[2017-12-16] MEDS: FAMOTIDINE 20 MG INJ IV (09:50)
[2017-12-16] MEDS: ONDANSETRON 4 MG INJ IV ×2 (09:51→17:47)
[2017-12-16] MEDS: POTASSIUM CHLORIDE 20 MEQ POWDER FOR ORAL SOLN PO (09:51)
[2017-12-16] MEDS ORDERED: ALBUTEROL 0.083% (NEB) 2.5 MG/3 ML AMP HHN (12:30)
[2017-12-16] MEDS ORDERED: POTASSIUM CHLORIDE 20 MEQ POWDER FOR ORAL SOLN PO (13:00)
[2017-12-16] MEDS: METOCLOPRAMIDE 10 MG INJ IV ×2 (13:08→21:01)
[2017-12-16] MEDS: POTASSIUM CHLORIDE 100 ML IVPB ×3 (14:55→20:48)
[2017-12-17] MEDS: AMPICILLIN/SULB 3 GM/NS (PMX) 100 ML IVPB ×4 (00:52→16:57)
[2017-12-17] MEDS: DEXTROSE 5%-0.45% NACL 1,000 ML IV ×2 (00:52→16:30)
[2017-12-17 05:07] LABS: ADD MAN DIFF? NO
[2017-12-17 05:12] LABS: BASOPHIL # 0.1 10^3/ul (0.0-0.1); BASOPHILS % 1.2 % (0.0-2.0); EOSINOPHILS # 0.3 10^3/ul (0.0-0.5); EOSINOPHILS % 5.3 % (0.0-7.0); HEMATOCRIT 34.4 % (42.0-52.0); HEMOGLOBIN 11.6 g/dl (14.0-18.0); LYMPHOCYTES # 1.9 10^3/ul (0.8-2.9); LYMPHOCYTES % 32.2 % (15.0-51.0); MEAN CORPUSCULAR HEMOGLOBIN 26.9 pg (29.0-33.0); MEAN CORPUSCULAR HGB CONC 33.7 g/dl (32.0-37.0); MEAN CORPUSCULAR VOLUME 79.6 fl (82.0-101.0); MEAN PLATELET VOLUME 10.5 fl (7.4-10.4); MONOCYTE # 0.7 10^3/ul (0.3-0.9); NEUTROPHILS % 50.1 % (39.0-77.0); PLATELET COUNT 309 10^3/UL (140-415); RED BLOOD COUNT 4.32 10^6/ul (4.70-6.10); RED CELL DISTRIBUTION WIDTH 11.9 % (11.5-14.5)
[2017-12-17 05:24] LABS: ALBUMIN 3.4 g/dl (3.3-4.9); ANION GAP 15 (8-16); BLOOD UREA NITROGEN 5 mg/dl (7-20); CALCIUM 8.7 mg/dl (8.4-10.2); CARBON DIOXIDE 28 mmol/L (21-31); CHLORIDE 101 mmol/L (97-110); GLUCOSE 114 mg/dl (70-220); MAGNESIUM 1.8 mg/dl (1.7-2.5); PHOSPHORUS 3.8 mg/dl (2.5-4.9); POTASSIUM 3.4 mmol/L (3.5-5.1); SODIUM 141 mmol/L (135-144)
[2017-12-17] MEDS: FAMOTIDINE 20 MG INJ IV (08:09)
[2017-12-17] MEDS: CIPROFLOXACIN 400MG/D5W 200 ML IVPB ×2 (08:09→21:09)
[2017-12-17] MEDS: ENOXAPARIN 40 MG/0.4 ML SYG SC (08:13)
[2017-12-17 09:31] LABS: ADD UMIC YES; UR AMORPHOUS CRYSTAL FEW /HPF (NONE SEEN); UR ASCORBIC ACID NEGATIVE (NEGATIVE); UR BACTERIA FEW /HPF (NONE SEEN); UR BILIRUBIN (Dip) NEGATIVE (NEGATIVE); UR BLOOD (Dip) 3+ mg/dL (NEGATIVE); UR CLARITY SLIGHTLY CLOUDY (CLEAR); UR COLOR YELLOW (YELLOW); UR GLUCOSE (Dip) NEGATIVE (NEGATIVE); UR KETONES (Dip) NEGATIVE (NEGATIVE); UR LEUKOCYTE ESTERASE (Dip) 3+ Leu/ul (NEGATIVE); UR NITRITE (Dip) NEGATIVE (NEGATIVE); UR NONSQUAMOUS EPITHELIAL CELL 4 /HPF (NONE SEEN); UR RBC 2 /HPF (0-5); UR SPECIFIC GRAVITY (Dip) 1.003 (1.003-1.030); UR TOTAL PROTEIN (Dip) NEGATIVE (NEGATIVE); UR UROBILINOGEN (Dip) NEGATIVE (NEGATIVE); UR WBC 104 /HPF (0-5)
[2017-12-17] MEDS: ONDANSETRON 4 MG INJ IV (10:00)
[2017-12-17] MEDS: POTASSIUM CHLORIDE 100 ML IVPB ×2 (12:28→17:33)
[2017-12-17] MEDS ORDERED: IOHEXOL 300MG/ML 150 ML BTL (15:06)
[2017-12-18] MEDS: AMPICILLIN/SULB 3 GM/NS (PMX) 100 ML IVPB ×4 (01:40→17:12)
[2017-12-18 05:55] LABS: ALBUMIN 3.6 g/dl (3.3-4.9); ANION GAP 17 (8-16); BLOOD UREA NITROGEN 8 mg/dl (7-20); CALCIUM 8.9 mg/dl (8.4-10.2); CARBON DIOXIDE 26 mmol/L (21-31); CHLORIDE 102 mmol/L (97-110); CREATININE 0.81 mg/dl (0.61-1.24); GLUCOSE 96 mg/dl (70-220); MAGNESIUM 1.7 mg/dl (1.7-2.5); PHOSPHORUS 4.4 mg/dl (2.5-4.9); POTASSIUM 3.8 mmol/L (3.5-5.1); SODIUM 141 mmol/L (135-144)
[2017-12-18] MEDS: ENOXAPARIN 40 MG/0.4 ML SYG SC ×2 (08:06→18:51)
[2017-12-18] MEDS: CIPROFLOXACIN 400MG/D5W 200 ML IVPB ×2 (09:21→21:47)
[2017-12-18] MEDS: FAMOTIDINE 20 MG INJ IV (09:21)
[2017-12-18] MEDS: DEXTROSE 5%-0.45% NACL 1,000 ML IV (11:29)
[2017-12-18 17:45] LABS: OCCULT BLOOD STOOL NEGATIVE (NEGATIVE)
[2017-12-18] MEDS: ONDANSETRON 4 MG INJ IV (21:47)
[2017-12-19] MEDS: AMPICILLIN/SULB 3 GM/NS (PMX) 100 ML IVPB ×4 (00:02→18:55)
[2017-12-19 05:46] LABS: ALBUMIN 3.6 g/dl (3.3-4.9); ANION GAP 17 (8-16); BLOOD UREA NITROGEN 8 mg/dl (7-20); CALCIUM 8.7 mg/dl (8.4-10.2); CARBON DIOXIDE 27 mmol/L (21-31); CHLORIDE 101 mmol/L (97-110); CREATININE 0.83 mg/dl (0.61-1.24); GLUCOSE 94 mg/dl (70-220); MAGNESIUM 1.6 mg/dl (1.7-2.5); PHOSPHORUS 4.3 mg/dl (2.5-4.9); POTASSIUM 3.6 mmol/L (3.5-5.1); SODIUM 141 mmol/L (135-144)
[2017-12-19] MEDS: DEXTROSE 5%-0.45% NACL 1,000 ML IV ×2 (08:30→18:58)
[2017-12-19] MEDS: FAMOTIDINE 20 MG INJ IV (08:36)
[2017-12-19] MEDS: CIPROFLOXACIN 400MG/D5W 200 ML IVPB ×2 (08:38→21:02)
[2017-12-19] MEDS: ENOXAPARIN 40 MG/0.4 ML SYG SC (09:21)
[2017-12-19] MEDS: ONDANSETRON 4 MG INJ IV ×2 (09:47→21:41)
[2017-12-19 12:49] LABS: INR 1.37; PROTIME 17.1 Sec (11.9-14.9); PT RATIO 1.3
[2017-12-19] MEDS: PEG/ELECTROLYTES 4L BTL PO (14:31)
[2017-12-19] MEDS: ALTEPLASE (CATHFLO) 2 MG INJ CATHETER (14:42)
[2017-12-20] MEDS: SODIUM CHLORIDE 0.9% 1L IRRIG IRR
[2017-12-20] MEDS: LIDOCAINE 1% (MPF) 30 ML INJ INJ
[2017-12-20] MEDS: AMPICILLIN/SULB 3 GM/NS (PMX) 100 ML IVPB ×4 (00:16→20:38)
[2017-12-20] MEDS: ONDANSETRON 4 MG INJ IV (03:01)
[2017-12-20] MEDS: DEXTROSE 5%-0.45% NACL 1,000 ML IV ×2 (04:30→22:26)
[2017-12-20 05:44] LABS: ADD MAN DIFF? NO
[2017-12-20 05:54] LABS: BASOPHIL # 0.1 10^3/ul (0.0-0.1); EOSINOPHILS # 0.2 10^3/ul (0.0-0.5); EOSINOPHILS % 3.5 % (0.0-7.0); HEMATOCRIT 34.4 % (42.0-52.0); HEMOGLOBIN 11.7 g/dl (14.0-18.0); LYMPHOCYTES # 1.8 10^3/ul (0.8-2.9); MEAN CORPUSCULAR HEMOGLOBIN 26.7 pg (29.0-33.0); MEAN CORPUSCULAR VOLUME 78.5 fl (82.0-101.0); MEAN PLATELET VOLUME 10.6 fl (7.4-10.4); MONOCYTE # 0.6 10^3/ul (0.3-0.9); MONOCYTES % 10.3 % (0.0-11.0); NEUTROPHIL # 3.5 10^3/ul (1.6-7.5); NEUTROPHILS % 55.9 % (39.0-77.0); PLATELET COUNT 273 10^3/UL (140-415); RED BLOOD COUNT 4.38 10^6/ul (4.70-6.10); RED CELL DISTRIBUTION WIDTH 12.1 % (11.5-14.5)
[2017-12-20 05:54] LABS: WHITE BLOOD COUNT 6.2 10^3/ul (4.8-10.8)
[2017-12-20 06:12] LABS: ALBUMIN 3.7 g/dl (3.3-4.9); ANION GAP 17 (8-16); BLOOD UREA NITROGEN 7 mg/dl (7-20); CALCIUM 8.7 mg/dl (8.4-10.2); CARBON DIOXIDE 26 mmol/L (21-31); CHLORIDE 100 mmol/L (97-110); CREATININE 0.84 mg/dl (0.61-1.24); GLUCOSE 96 mg/dl (70-220); MAGNESIUM 1.6 mg/dl (1.7-2.5); PHOSPHORUS 3.7 mg/dl (2.5-4.9); POTASSIUM 3.3 mmol/L (3.5-5.1); SODIUM 140 mmol/L (135-144)
[2017-12-20] MEDS ORDERED: PROPOFOL 200 MG INJ (07:00)
[2017-12-20] MEDS: CIPROFLOXACIN 400MG/D5W 200 ML IVPB ×2 (08:51→21:58)
[2017-12-20] MEDS: FAMOTIDINE 20 MG INJ IV (08:52)
[2017-12-20] MEDS ORDERED: BUPIVACAINE 0.5%/EPI (SDV) 30 ML INJ (09:00)
[2017-12-20] MEDS: POTASSIUM CHLORIDE 100 ML IVPB ×2 (10:43→23:15)
[2017-12-20] MEDS ORDERED: FENTAnyl 50 MCG/ML VIAL ×2 (13:21→16:03)
[2017-12-20] MEDS ORDERED: PIPER-TAZO 3.375 GM IV (PMX) 100 ML (13:57)
[2017-12-20] MEDS ORDERED: LIDOCAINE 1% (MPF) 30 ML INJ (14:04)
[2017-12-20] MEDS ORDERED: METOCLOPRAMIDE 10 MG INJ IV (16:00)
[2017-12-20] MEDS ORDERED: MEPERIDINE 25 MG INJ IV (16:00)
[2017-12-20] MEDS ORDERED: HYDROmorphONE (0.2 MG/ML) 10ML SYG IV ×2 (16:00)
[2017-12-20] MEDS ORDERED: FENTAnyl 50 MCG/ML VIAL IV ×3 (16:00)
[2017-12-20] MEDS ORDERED: DIPHENHYDRAMINE 50 MG INJ IV (16:00)
[2017-12-20] MEDS ORDERED: ONDANSETRON 4 MG INJ IV (16:00)
[2017-12-20] MEDS ORDERED: SUCCINYLCHOLINE CHLORIDE 100 MG/5 ML SYG IV (16:03)
[2017-12-20] MEDS ORDERED: PROPOFOL 20 ML (16:03)
[2017-12-20] MEDS ORDERED: ROCURONIUM 50 MG INJ (16:03)
[2017-12-20] MEDS ORDERED: SUGAMMADEX SODIUM 200 MG/2 ML VIAL IV (16:04)
[2017-12-20] MEDS ORDERED: ROPIVACAINE 0.5 % 30 ML VIAL (16:55)
[2017-12-20] MEDS: HYDROmorphONE (0.2 MG/ML) 10ML SYG IV (17:59)
[2017-12-20] MEDS: KETOROLAC 30 MG INJ IV (18:59)
[2017-12-20] MEDS: HYDROmorphONE 0.5 MG/0.5 ML SYG IV (19:39)
[2017-12-20] MEDS: MAGNESIUM SULFATE 4 GM/100 ML 100 ML IVPB (19:39)
[2017-12-21] MEDS: KETOROLAC 30 MG INJ IV ×3 (00:16→12:36)
[2017-12-21] MEDS: AMPICILLIN/SULB 3 GM/NS (PMX) 100 ML IVPB ×5 (01:40→23:51)
[2017-12-21] MEDS: ONDANSETRON 4 MG INJ IV ×2 (02:54→20:40)
[2017-12-21] MEDS: HYDROmorphONE 0.5 MG/0.5 ML SYG IV ×5 (02:54→23:53)
[2017-12-21 06:14] LABS: ANION GAP 13 (8-16); BLOOD UREA NITROGEN 8 mg/dl (7-20); CALCIUM 8.3 mg/dl (8.4-10.2); CARBON DIOXIDE 27 mmol/L (21-31); CHLORIDE 100 mmol/L (97-110); CREATININE 0.71 mg/dl (0.61-1.24); GLUCOSE 119 mg/dl (70-220); MAGNESIUM 2.3 mg/dl (1.7-2.5); PHOSPHORUS 4.2 mg/dl (2.5-4.9); POTASSIUM 3.9 mmol/L (3.5-5.1); SODIUM 136 mmol/L (135-144)
[2017-12-21 06:42] LABS: ADD MAN DIFF? NO
[2017-12-21] MEDS: CIPROFLOXACIN 400MG/D5W 200 ML IVPB ×2 (09:26→20:32)
[2017-12-21] MEDS: FAMOTIDINE 20 MG INJ IV (09:26)
[2017-12-21 10:44] LABS: WHITE BLOOD COUNT 10.8 10^3/ul (4.8-10.8)
[2017-12-21 10:44] LABS: BASOPHILS % 0.4 % (0.0-2.0); EOSINOPHILS # 0.1 10^3/ul (0.0-0.5); EOSINOPHILS % 0.5 % (0.0-7.0); HEMATOCRIT 31.9 % (42.0-52.0); HEMOGLOBIN 10.9 g/dl (14.0-18.0); LYMPHOCYTES # 1.4 10^3/ul (0.8-2.9); LYMPHOCYTES % 12.7 % (15.0-51.0); MEAN CORPUSCULAR HEMOGLOBIN 27.3 pg (29.0-33.0); MEAN CORPUSCULAR HGB CONC 34.2 g/dl (32.0-37.0); MEAN CORPUSCULAR VOLUME 79.8 fl (82.0-101.0); MEAN PLATELET VOLUME 10.9 fl (7.4-10.4); MONOCYTE # 0.9 10^3/ul (0.3-0.9); MONOCYTES % 8.2 % (0.0-11.0); NEUTROPHIL # 8.4 10^3/ul (1.6-7.5); NEUTROPHILS % 77.8 % (39.0-77.0); PLATELET COUNT 258 10^3/UL (140-415); RED CELL DISTRIBUTION WIDTH 12.1 % (11.5-14.5)
[2017-12-21] MEDS: DEXTROSE 5%-0.45% NACL 1,000 ML IV (20:30)
[2017-12-22] MEDS: HYDROmorphONE 0.5 MG/0.5 ML SYG IV ×3 (04:08→14:46)
[2017-12-22 05:07] LABS: ADD MAN DIFF? NO
[2017-12-22 05:11] LABS: WHITE BLOOD COUNT 7.7 10^3/ul (4.8-10.8)
[2017-12-22 05:11] LABS: BASOPHILS % 0.5 % (0.0-2.0); EOSINOPHILS # 0.1 10^3/ul (0.0-0.5); HEMATOCRIT 30.4 % (42.0-52.0); HEMOGLOBIN 10.4 g/dl (14.0-18.0); LYMPHOCYTES # 1.6 10^3/ul (0.8-2.9); LYMPHOCYTES % 21.4 % (15.0-51.0); MEAN CORPUSCULAR HEMOGLOBIN 27.1 pg (29.0-33.0); MEAN CORPUSCULAR HGB CONC 34.2 g/dl (32.0-37.0); MEAN CORPUSCULAR VOLUME 79.2 fl (82.0-101.0); MEAN PLATELET VOLUME 10.7 fl (7.4-10.4); MONOCYTE # 0.7 10^3/ul (0.3-0.9); MONOCYTES % 9.5 % (0.0-11.0); NEUTROPHIL # 5.2 10^3/ul (1.6-7.5); NEUTROPHILS % 67.2 % (39.0-77.0); PLATELET COUNT 254 10^3/UL (140-415); RED BLOOD COUNT 3.84 10^6/ul (4.70-6.10); RED CELL DISTRIBUTION WIDTH 12.3 % (11.5-14.5)
[2017-12-22 05:23] LABS: ALBUMIN 3.3 g/dl (3.3-4.9); ANION GAP 18 (8-16); BLOOD UREA NITROGEN 8 mg/dl (7-20); CALCIUM 8.4 mg/dl (8.4-10.2); CARBON DIOXIDE 27 mmol/L (21-31); CHLORIDE 98 mmol/L (97-110); CREATININE 0.73 mg/dl (0.61-1.24); GLUCOSE 107 mg/dl (70-220); MAGNESIUM 1.9 mg/dl (1.7-2.5); PHOSPHORUS 3.4 mg/dl (2.5-4.9); POTASSIUM 3.9 mmol/L (3.5-5.1); SODIUM 139 mmol/L (135-144)
[2017-12-22] MEDS: AMPICILLIN/SULB 3 GM/NS (PMX) 100 ML IVPB ×4 (05:27→23:27)
[2017-12-22] MEDS: CIPROFLOXACIN 400MG/D5W 200 ML IVPB ×2 (08:54→20:39)
[2017-12-22] MEDS: DEXTROSE 5%-0.45% NACL 1,000 ML IV (09:02)
[2017-12-22] MEDS: FAMOTIDINE 20 MG INJ IV (09:57)
[2017-12-22] MEDS: ONDANSETRON 4 MG INJ IV ×2 (11:16→22:05)
[2017-12-22] MEDS: METOCLOPRAMIDE 10 MG INJ IV (15:31)
[2017-12-22] MEDS: HYDROCODONE/APAP (5/325) TAB PO ×2 (17:54→22:44)
[2017-12-23] MEDS: AMPICILLIN/SULB 3 GM/NS (PMX) 100 ML IVPB (05:08)
[2017-12-23] MEDS: ONDANSETRON 4 MG INJ IV ×2 (05:20→13:04)
[2017-12-23] MEDS: HYDROmorphONE 0.5 MG/0.5 ML SYG IV ×3 (05:23→21:39)
[2017-12-23] MEDS: CIPROFLOXACIN 400MG/D5W 200 ML IVPB (08:13)
[2017-12-23] MEDS: FAMOTIDINE 20 MG INJ IV (08:13)
[2017-12-23] MEDS: METOCLOPRAMIDE 10 MG INJ IV (08:17)
[2017-12-23] MEDS: DEXTROSE 5%-0.45% NACL 1,000 ML IV (12:51)
[2017-12-24] MEDS: HYDROmorphONE 0.5 MG/0.5 ML SYG IV ×3 (01:12→20:17)
[2017-12-24 05:14] LABS: ADD MAN DIFF? NO
[2017-12-24 05:21] LABS: BASOPHIL # 0.1 10^3/ul (0.0-0.1); BASOPHILS % 0.9 % (0.0-2.0); EOSINOPHILS # 0.3 10^3/ul (0.0-0.5); HEMATOCRIT 31.7 % (42.0-52.0); HEMOGLOBIN 10.8 g/dl (14.0-18.0); LYMPHOCYTES # 1.9 10^3/ul (0.8-2.9); LYMPHOCYTES % 35.1 % (15.0-51.0); MEAN CORPUSCULAR HEMOGLOBIN 26.7 pg (29.0-33.0); MEAN CORPUSCULAR HGB CONC 34.1 g/dl (32.0-37.0); MEAN CORPUSCULAR VOLUME 78.5 fl (82.0-101.0); MEAN PLATELET VOLUME 10.4 fl (7.4-10.4); MONOCYTE # 0.5 10^3/ul (0.3-0.9); MONOCYTES % 8.9 % (0.0-11.0); NEUTROPHIL # 2.7 10^3/ul (1.6-7.5); NEUTROPHILS % 49.7 % (39.0-77.0); PLATELET COUNT 254 10^3/UL (140-415); RED BLOOD COUNT 4.04 10^6/ul (4.70-6.10); RED CELL DISTRIBUTION WIDTH 12.7 % (11.5-14.5)
[2017-12-24 05:21] LABS: WHITE BLOOD COUNT 5.4 10^3/ul (4.8-10.8)
[2017-12-24 05:40] LABS: ANION GAP 13 (8-16); BLOOD UREA NITROGEN 10 mg/dl (7-20); CALCIUM 8.8 mg/dl (8.4-10.2); CARBON DIOXIDE 28 mmol/L (21-31); CHLORIDE 100 mmol/L (97-110); CREATININE 0.67 mg/dl (0.61-1.24); GLUCOSE 107 mg/dl (70-220); MAGNESIUM 1.8 mg/dl (1.7-2.5); PHOSPHORUS 4.2 mg/dl (2.5-4.9); POTASSIUM 3.3 mmol/L (3.5-5.1); SODIUM 138 mmol/L (135-144)
[2017-12-24] MEDS: DEXTROSE 5%-0.45% NACL 1,000 ML IV ×2 (06:28→08:30)
[2017-12-24] MEDS: FAMOTIDINE 20 MG INJ IV (09:14)
[2017-12-24] MEDS: ONDANSETRON 4 MG INJ IV (10:17)
[2017-12-24] MEDS: KETOROLAC 30 MG INJ IV ×2 (10:36→18:02)
[2017-12-25] MEDS: DEXTROSE 5%-0.45% NACL 1,000 ML IV (03:04)
[2017-12-25] MEDS: KETOROLAC 30 MG INJ IV (03:10)
[2017-12-25] MEDS: FAMOTIDINE 20 MG INJ IV (08:20)
[2017-12-25] MEDS ORDERED: HYDROmorphONE 0.5 MG/0.5 ML SYG IV (14:00)
[2017-12-25] MEDS ORDERED: HYDROCODONE/APAP (5/325) TAB PO ×2 (14:00)
== END 2017-12-25 18:45 | disposition home or self-care (01) | DRG 330 ==
LOC: MS1 12-07 02:50 → E/R 17:54 → MS1 12-07 01:07
PROC: 0DTN0ZZ Resection of Sigmoid Colon, Open Approach (ICD-10-PCS; principal; 2017-12-20 12:30)
PROC: 0DU Gastrointestinal System, Supplement (ICD-10-PCS; 2017-12-20 12:30)
PROC: 0TU Urinary System, Supplement (ICD-10-PCS; 2017-12-20 12:30)
PROC: 0DNN4ZZ Release Sigmoid Colon, Percutaneous Endoscopic Approach (ICD-10-PCS; 2017-12-20 12:30)
PROC: 0DJD8ZZ Inspection of Lower Intestinal Tract, Via Natural or Artificial Opening Endoscopic (ICD-10-PCS; 2017-12-20 12:30)
PROC: 0W9J30Z Drainage of Pelvic Cavity with Drainage Device, Percutaneous Approach (ICD-10-PCS; 2017-12-20 13:29)
DX: K57.20 Diverticulitis of large intestine with perforation and abscess without bleeding (principal); R65.10 Systemic inflammatory response syndrome (SIRS) of non-infectious origin without acute organ dysfunction; N32.1 Vesicointestinal fistula; N13.8 Other obstructive and reflux uropathy; E66.01 Morbid (severe) obesity due to excess calories; Z68.39 Body mass index [BMI] 39.0-39.9, adult; E83.51 Hypocalcemia; E87.6 Hypokalemia; D64.9 Anemia, unspecified; J44.9 Chronic obstructive pulmonary disease, unspecified; K52.9 Noninfective gastroenteritis and colitis, unspecified; R39.89 Other symptoms and signs involving the genitourinary system; R11.2 Nausea with vomiting, unspecified
CPT/HCPCS: 36415; 71045; 74176; 74177; 74250; 77012; 80048; 80053; 80069; 80202; 81001; 82270; 82962; 83605; 83690; 83735; 84100; 84484; 85014; 85018; 85025; 85610; 85730; 87040; 87070; 87086; 88307; 93005; 96374; 96375; 96376; 97161; 99285-25

== ENCOUNTER 2017-12-28 14:13 | Emergency (ER) | payer OTHER ==
[2017-12-28 15:25] LABS: URINE BLOOD (Dip) POC 2+ (NEGATIVE); URINE GLUCOSE (Dip) POC Negative (NEGATIVE); URINE KETONES (Dip) POC Trace (NEGATIVE); URINE LEUKOCYTE EST (Dip) POC Negative (NEGATIVE); URINE NITRITE (Dip) POC Negative (NEGATIVE); URINE TOTAL PROTEIN POC 2+ (NEGATIVE)
== END 2017-12-28 16:06 | disposition home or self-care (01) ==
LOC: FTE 14:13
DX: T83.9XXA Unspecified complication of genitourinary prosthetic device, implant and graft, initial encounter (principal); J45.909 Unspecified asthma, uncomplicated; Y73.2 Prosthetic and other implants, materials and accessory gastroenterology and urology devices associated with adverse incidents
CPT/HCPCS: 81003; 99283

== ENCOUNTER 2019-01-08 12:14 | Emergency (ER) | payer OTHER ==
[2019-01-08 13:03] LABS: ADD MAN DIFF? NO
[2019-01-08 13:05] LABS: BASOPHIL # 0.1 10^3/ul (0.0-0.1); EOSINOPHILS # 0.2 10^3/ul (0.0-0.5); HEMATOCRIT 43.8 % (42.0-52.0); LYMPHOCYTES # 2.3 10^3/ul (0.8-2.9); LYMPHOCYTES % 28.9 % (15.0-51.0); MEAN CORPUSCULAR HEMOGLOBIN 27.9 pg (29.0-33.0); MEAN CORPUSCULAR HGB CONC 34.2 g/dl (32.0-37.0); MEAN CORPUSCULAR VOLUME 81.4 fl (82.0-101.0); MEAN PLATELET VOLUME 9.9 fl (7.4-10.4); MONOCYTE # 0.6 10^3/ul (0.3-0.9); MONOCYTES % 6.9 % (0.0-11.0); NEUTROPHIL # 4.9 10^3/ul (1.6-7.5); NEUTROPHILS % 60.7 % (39.0-77.0); PLATELET COUNT 260 10^3/UL (140-415); RED BLOOD COUNT 5.38 10^6/ul (4.70-6.10); RED CELL DISTRIBUTION WIDTH 12.4 % (11.5-14.5)
[2019-01-08 13:05] LABS: WHITE BLOOD COUNT 8.1 10^3/ul (4.8-10.8)
[2019-01-08 13:27] LABS: ALANINE AMINOTRANSFERASE 56 IU/L (13-69); ALBUMIN 4.4 g/dl (3.3-4.9); ALBUMIN/GLOBULIN RATIO 1.33; ALKALINE PHOSPHATASE 111 IU/L (42-121); ANION GAP 10 (5-13); ASPARTATE AMINO TRANSFERASE 44 IU/L (15-46); BILIRUBIN,INDIRECT 0.2 mg/dl (0-1.1); BILIRUBIN,TOTAL 0.2 mg/dl (0.2-1.3); BLOOD UREA NITROGEN 14 mg/dl (7-20); CALCIUM 9.3 mg/dl (8.4-10.2); CARBON DIOXIDE 27 mmol/L (21-31); CHLORIDE 103 mmol/L (97-110); CREATININE 0.95 mg/dl (0.61-1.24); Estimated GFR > 60 mL/min (>60); GLUCOSE 165 mg/dl (70-220); POTASSIUM 3.8 mmol/L (3.5-5.1); SODIUM 140 mmol/L (135-144); TOTAL PROTEIN 7.7 g/dl (6.1-8.1)
[2019-01-08 13:39] LABS: TROPONIN-I < 0.012 ng/ml (0.000-0.120)
== END 2019-01-08 14:28 | disposition home or self-care (01) ==
LOC: FTE 12:14
DX: R07.9 Chest pain, unspecified (principal); J45.909 Unspecified asthma, uncomplicated
CPT/HCPCS: 36415; 71045; 80053; 84484; 85025; 93005; 99285-25